=== PATIENT | male | born 1980 | race American Indian/Alaskan Native ===

== ENCOUNTER 2018-06-29 16:44 | Emergency (ER) | payer SELFPAY ==
[2018-06-29 16:59] VITALS: BP 125/92
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
[2018-06-29 17:46] LABS: Hematocrit 44.7 % (35.5-45.6); Hemoglobin 14.9 gm/dl (11.8-15.2); Mean Corpuscular HGB Conc 33 % (32-34); Mean Corpuscular Volume 87 fl (84-94); Platelet Count 179 K/mm3 (140-440); Red Blood Count 5.15 M/mm3 (3.65-5.03); Red Cell Distribution Width 14.3 % (13.2-15.2)
[2018-06-29 17:50] LABS: Bilirubin,Urine NEG (Negative); Blood,Urine NEG (Negative); Color,Urine Yellow (Yellow); Mucus,Urine FEW /HPF; Protein,Urine <15 mg/dL mg/dL (Negative); WBC,Urine < 1.0 /HPF (0.0-6.0)
[2018-06-29 18:06] LABS: Alanine Aminotransferase 12 units/L (7-56); Albumin 4.3 g/dL (3.9-5); BUN/Creatinine Ratio 15; Blood Urea Nitrogen 12 mg/dL (9-20); Calcium 9.2 mg/dL (8.4-10.2); Hemolysis Index 7
[2018-06-29] MEDS ORDERED: IBUPROFEN PO ONE (18:15)
--- NOTE | 2018-06-29 18:37 | XRay Report ---
FINAL REPORT PROCEDURE: XR CHEST ROUTINE 2V TECHNIQUE: PA and lateral chest radiographs were obtained. CPT 50403 HISTORY: chest pain COMPARISON: No prior studies are available for comparison. FINDINGS: Heart: Normal. Mediastinum/Vessels: Normal. Lungs/Pleural space: No infiltrate, effusion, or pneumothorax. Bony thorax: No acute osseous abnormality. Other: IMPRESSION: No radiographic evidence of acute abnormality.
== END 2018-06-29 19:50 | disposition home or self-care (01) ==
LOC: ED 16:44
DX: M94.0 Chondrocostal junction syndrome [Tietze] (principal); R51 Headache; E11.9 Type 2 diabetes mellitus without complications; K21.9 Gastro-esophageal reflux disease without esophagitis; F17.200 Nicotine dependence, unspecified, uncomplicated
CPT/HCPCS: 36415; 71046; 80053; 81001; 84484; 85027; 93005; 93010

== ENCOUNTER 2018-12-03 13:32 | Emergency (ER) | payer SELFPAY ==
[2018-12-03 14:20] VITALS: BP 160/98
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
[2018-12-03] MEDS ORDERED: TORADOL IM ONE (15:07)
--- NOTE | 2018-12-03 15:46 | XRay Report ---
PROCEDURE: XR ANKLE BILAT 3+V TECHNIQUE: AP, oblique and lateral radiographs of the right and left ankles. HISTORY: lateral swelling and pain COMPARISONS: None. FINDINGS: Right ankle: No fracture or dislocation. Normal mineralization. No soft tissue abnormality. Left ankle: No fracture or dislocation. Normal mineralization. No soft tissue abnormality. IMPRESSION: Normal ankles. This document is electronically signed by Cleopatra Hernandes., December 03 2018 03:44:05 PM ET
--- NOTE | 2018-12-03 16:28 | XRay Report ---
PROCEDURE: XR SPINE LUMBOSACRAL 2-3V TECHNIQUE: Lumbar spine 2 views HISTORY: low back pain COMPARISONS: FINDINGS: Vertebral bodies demonstrate normal height and alignment. Disc spaces are within normal limits. Trans verse and spinous processes are intact. SI joints are unremarkable. IMPRESSION: Negative lumbar spine series. This document is electronically signed by Franck Hart MD., December 03 2018 04:26:36 PM ET
== END 2018-12-03 17:30 | disposition home or self-care (01) ==
LOC: ED 13:32
DX: S96.912A Strain of unspecified muscle and tendon at ankle and foot level, left foot, initial encounter (principal); S96.911A Strain of unspecified muscle and tendon at ankle and foot level, right foot, initial encounter; M54.5 Low back pain; E11.9 Type 2 diabetes mellitus without complications; K21.9 Gastro-esophageal reflux disease without esophagitis; X58.XXXA Exposure to other specified factors, initial encounter; Y93.89 Activity, other specified; Y92.89 Other specified places as the place of occurrence of the external cause; Y99.8 Other external cause status
CPT/HCPCS: 72100; 73610; 96372; 99283; J1885

== ENCOUNTER 2019-10-15 11:05 | Emergency (ER) | payer SELFPAY ==
[2019-10-15 11:19] VITALS: BP 157/96
[2019-10-15 11:57] LABS: Basophils % (Auto) 0.2 % (0.0-1.8); Eosinophils # (Auto) 0.4 K/mm3 (0.0-0.4); Eosinophils % (Auto) 5.4 % (0.0-4.3); Hematocrit 44.5 % (35.5-45.6); Hemoglobin 14.9 gm/dl (11.8-15.2); Lymphocytes # (Auto) 3.5 K/mm3 (1.2-5.4); Lymphocytes % (Auto) 50.5 % (13.4-35.0); Mean Corpuscular HGB Conc 33 % (32-34); Mean Corpuscular Volume 84 fl (84-94); Monocytes # (Auto) 0.6 K/mm3 (0.0-0.8); Monocytes % (Auto) 8.5 % (0.0-7.3); Platelet Count 201 K/mm3 (140-440); Red Blood Count 5.34 M/mm3 (3.65-5.03); Red Cell Distribution Width 13.7 % (13.2-15.2)
[2019-10-15 12:18] LABS: BUN/Creatinine Ratio 10; Blood Urea Nitrogen 9 mg/dL (9-20); Calcium 9.2 mg/dL (8.4-10.2); Hemolysis Index 9
[2019-10-15 12:54] LABS: Alanine Aminotransferase 12 units/L (7-56)
[2019-10-15 12:55] LABS: Bilirubin,Direct < 0.2 mg/dL (0-0.2)
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
[2019-10-15] MEDS ORDERED: SODIUM CHLORIDE 0.9% 1000 ML 1,000 ML IV ONE (14:17)
[2019-10-15] MEDS ORDERED: ONDANSETRON 4 MG/2 ML INJ IV ONE (14:17)
[2019-10-15] MEDS ORDERED: LOPERAMIDE 2 MG CAP PO ONE (14:17)
== END 2019-10-15 16:05 | disposition home or self-care (01) ==
LOC: ED 11:05
DX: R11.2 Nausea with vomiting, unspecified (principal); R19.7 Diarrhea, unspecified; R05 Cough; R06.02 Shortness of breath; Z20.828 Contact with and (suspected) exposure to other viral communicable diseases; Z79.1 Long term (current) use of non-steroidal anti-inflammatories (NSAID); Z79.899 Other long term (current) drug therapy
CPT/HCPCS: 36415; 80048; 80076; 83690; 85025; 96361; 96374; 99283; J2405; J7030